=== PATIENT | male | born 1950 | race Caucasian/White ===

== ENCOUNTER 2016-12-10 06:30 | Day surgery (SDC) | payer MEDICARE, OTHER ==
[~2016-12-10] VITALS: Ht 188 cm; Wt 95.3 kg
[~2016-12-10 06:30] MED LIST: LOSA100T27 PO; NAPR-607 PO; RIV15T PO; SOTA80TA PO
[2016-12-10] MEDS ORDERED: MIDAZOLAM HCL 5 MG/ML-1ML VIAL IV ONE (07:00)
[2016-12-10] MEDS ORDERED: fentaNYL CITRATE 100 MCG/2 ML VL IV ONE (07:00)
[2016-12-10] MEDS ORDERED: LIDOCAINE VISCOUS 2% 15ML UD PO ONE (07:00)
[2016-12-10] MEDS ORDERED: FLUMAZENIL 0.1 MG/ML INJ 10ML MDV IV ONE (07:14)
[2016-12-10] MEDS ORDERED: NALOXONE HCL 0.4 MG/ML VIAL ONE (07:14)
[2016-12-10] MEDS ORDERED: MIDAZOLAM HCL 1MG/1ML-2 ML VIAL ONE (07:14)
[2016-12-10] MEDS ORDERED: diphenhdrAMINE HCL 50 MG/1 ML VL ONE (07:38)
[2016-12-10] MEDS ORDERED: SOTALOL HCL 80 MG TAB PO ONE (08:30)
[2016-12-10] MEDS ORDERED: SOTALOL HCL 80 MG TAB ONE (08:46)
== END 2016-12-10 09:15 | disposition home or self-care (01) ==
LOC: CATH 06:30
PROVIDERS: ATTEND Specialist
DX: I48.91 Unspecified atrial fibrillation (principal); I50.33 Acute on chronic diastolic (congestive) heart failure; I34.0 Nonrheumatic mitral (valve) insufficiency; I35.1 Nonrheumatic aortic (valve) insufficiency; Z88.5 Allergy status to narcotic agent
CPT/HCPCS: 92960; 93312; J1200; J2250; J3010; J7030; 99152; 99153

== ENCOUNTER 2020-12-08 06:40 | Day surgery (SDC) | payer MEDICARE, OTHER ==
[2020-12-08] VITALS (8 sets, daily range): BP systolic 117–126; BP diastolic 66–92
[~2020-12-08] VITALS: Ht 185.4 cm; Wt 95.3 kg
[~2020-12-08 06:40] MED LIST changes: +APIX5TAB PO; +COEN100C30 PO; -LOSA100T27 PO; +LOSA50TA27 PO; +MAGN200T11 PO; -NAPR-607 PO; -RIV15T PO; +SIMV10TA2 PO
[2020-12-08] MEDS ORDERED: LIDOCAINE 2%HCL (LOCAL ANESTH.) INJ 20ML MDV ONE (07:37)
[2020-12-08] MEDS ORDERED: MIDAZOLAM HCL 2MG/2ML 2ml VIAL (1mg/ml) ONE (07:37)
[2020-12-08] MEDS ORDERED: fentaNYL CITRATE 100 MCG/2 ML VL ONE (07:37)
== END 2020-12-08 11:45 | disposition home or self-care (01) ==
LOC: CATH 06:40
PROVIDERS: ATTEND Specialist
DX: I48.91 Unspecified atrial fibrillation (principal); Z20.822 Contact with and (suspected) exposure to COVID-19; Z98.890 Other specified postprocedural states; Z79.899 Other long term (current) drug therapy
CPT/HCPCS: 93619; C1730; C1894; J1644; J2250; J3010; J7030; U0003; 99152; 99153